=== PATIENT | male | born 1970 | race Caucasian/White ===

== ENCOUNTER 2017-01-08 12:07 | Inpatient (IN) | payer MEDICAID ==
--- NOTE | 2017-01-06 22:35 | NUR ---
MS/RN NOTES DID NOT ADMINISTER TO PT. 2000 VANCOMYCIN ORDERED BECAUSE PT. RECEIVED VANCOMYCIN IN ER AT 1705. WILL CONTINUE TO MONITOR.
[~2017-01-08] VITALS: Ht 170.2 cm; Wt 117.9 kg
--- NOTE | 2017-01-08 14:12 | NUR ---
LORRAINE INDIVIDUAL PENSION CONSULTANT AT BEDSIDE FOR EVAL.
--- NOTE | 2017-01-08 15:19 | NUR ---
RADIOLOGY AT BEDSIDE FOR CHEST XRAY.
[2017-01-08] MEDS ORDERED: PIPERACILLIN /TAZOBACTAM 3.375 G in IV D5W 50 ML IV ONE (15:30)
[2017-01-08] MEDS ORDERED: VANCOMYCIN 1 GM in IV D5W 250 ML IV ONE (15:30)
[2017-01-08 15:31] LABS: BASOPHILS # (AUTO) 0.1 /CMM (0.0-0.2); BASOPHILS % (AUTO) 0.6 % (0.0-2.0); EOSINOPHILS # (AUTO) 0.2 /CMM (0.0-0.7); EOSINOPHILS % (AUTO) 1.5 % (0.0-6.0); HEMATOCRIT 50 % (39-51); HEMOGLOBIN 16.6 g/dL (13.5-17.5); LYMPHOCYTES # (AUTO) 3.5 /CMM (0.8-4.8); LYMPHOCYTES % (AUTO) 25.4 % (20.0-44.0); MEAN CORPUSCULAR HEMOGLOBIN 29 PG (26.0-33.0); MEAN CORPUSCULAR HGB CONC 33 g/dl (31.0-36.0); MEAN CORPUSCULAR VOLUME 88 fL (80-96); MONOCYTES # (AUTO) 0.7 /CMM (0.1-1.30); MONOCYTES % (AUTO) 5.1 % (2.0-12.0); NEUTROPHILS # (AUTO) 9.3 /CMM (1.8-8.9); NEUTROPHILS % (AUTO) 67.4 % (43.0-81.0); PLATELET COUNT (AUTO) 379 /CMM (150-450); RDW COEFFICIENT OF VARIATION 12.8 (11.5-15.0); RED BLOOD CELL COUNT(AUTO) 5.68 MIL/uL (4.5-6.0); WHITE BLOOD COUNT (AUTO) 13.8 K/uL (4.3-11.0)
[2017-01-08 15:40] LABS: CALCIUM, SERUM 9.5 mg/dL (8.5-10.1); CREATININE 1.5 mg/dL (0.6-1.3); POTASSIUM 4.4 mmol/L (3.5-5.1)
[2017-01-08] MEDS ORDERED: IV SET PRIMARY PUMP SET 1 EA INFUS.SET MC ONE ×2 (15:47→20:17)
[2017-01-08] MEDS ORDERED: ONDANSETRON HCL/PF 4 MG/2 ML VIAL ONE (15:47)
[2017-01-08] MEDS ORDERED: HYDROMORPHONE 1 MG/1 ML DISP.SYRIN ONE (15:47)
[2017-01-08] MEDS ORDERED: GABA-532 PO (15:49)
[2017-01-08] MEDS ORDERED: INSU100I14 SQ (15:49)
[2017-01-08] MEDS ORDERED: ATOR40TA PO (15:49)
[2017-01-08] MEDS ORDERED: ASPI81TA2 PO (15:49)
[2017-01-08] MEDS ORDERED: METO25TA6 PO (15:49)
[2017-01-08] MEDS ORDERED: DICL30AD3 PO (15:49)
[2017-01-08] MEDS ORDERED: INSU3INS6 SQ (15:49)
[2017-01-08] MEDS ORDERED: OXYC-34 PO (15:49)
[2017-01-08] MEDS ORDERED: BENA1TAB18 PO (15:49)
--- NOTE | 2017-01-08 15:49 | NUR ---
CALLED PHARMACY FOR ZELALEM
[2017-01-08 15:50] LABS: INR 0.95 (0.87-1.13)
[2017-01-08] MEDS ORDERED: ONDANSETRON HCL/PF - ER 4 MG/2 ML VIAL IV ONE (16:00)
[2017-01-08] MEDS ORDERED: HYDROMORPHONE 1 MG/1 ML DISP.SYRIN IV ONE (16:00)
--- NOTE | 2017-01-08 16:03 | NUR ---
PAGED DR. SWANSON FOR PANEL CALL
--- NOTE | 2017-01-08 17:20 | NUR ---
UNABLE TO GIVE REPORT, FLOOR NOT PICKING UP. PT TRANSFERED IN STABLE CONDITION PER ER CHARGE NURSE.
--- NOTE | 2017-01-08 17:59 | NUR ---
MS/sueding machine operator New patient from emergency room with left lower leg wound. Patient still to be admitted to floor. Dr De La Cruz paged for orders.
--- NOTE | 2017-01-08 18:20 | NUR ---
MS RN NOTES PT AWAKE ALERT AND VERBALLY RESPONSIVE. NOT IN ANY DISTRESS. NO SOB NOTED. PAGED DR. SWANSON FOR PAIN MANAGEMENT ORDERS PT STATES HAS 10/10 PAIN LEVEL WILL CONTINUE TO MONITOR AND FOLLOW UP. ORIENTED TO ROOM AND USE OF CALL LIGHT WITHIN REACH. BED IN LOWEST POSITION. SR UP X 2 DR SWANSON AWARE OF PTS ARRIVAL AND NEED FOR ADMISSION ORDERS WILL CONTINUE TO FOLLOW UP. T 97.5 R 18 P 70 BP 135/86 WILL ENDORSE TO NEXT SHIFT FOR CONTINUITY OF CARE
[2017-01-08] MEDS ORDERED: FEE PK DOSING 1 MIN EA MC ONE (18:54)
[2017-01-08] MEDS ORDERED: KETOROLAC TROMETHAMINE INJ 30 MG/ML VIAL IV PRN (19:00)
[2017-01-08] MEDS ORDERED: TRAMADOL HCL 50 MG TABLET PO PRN (19:00)
[2017-01-08] MEDS ORDERED: CEFTRIAXONE 1 G in IV D5W 50 ML IV SCH (19:00)
--- NOTE | 2017-01-08 19:00 | NUR ---
RN NOTES CALLED PHARMACY AND DR. SWANSON FOR VERIFICATION OF PAIN MEDICATION REGIME, WILL CONTINUE TO MONITOR AND ENDORSE TO NEXT SHIFT MEDICATION BECOMES AVAILABLE
--- NOTE | 2017-01-08 19:35 | NUR ---
MS/RN NOTES RECEIVED PT. LYING IN BED. AWAKE, ALERT AND ORIENTED X3. BREATHING EVEN AND UNLABORED ON ROOM AIR. NO SOB OR RESPIRATORY DISTRESS NOTED AT THIS TIME. PT. COMPLAINING OF PAIN 8/10 IN LEFT LOWER LEG. WILL VERIFY PT. PAIN MEDICATION AND ADMINISTER PAIN MEDICATION ORDERED. PT. WITH RIGHT AC 20 GAUGE IV SALINE LOCK PRESENT, PATENT AND INTACT. PT. WITH LEFT LOWER LEG WOUND WITH DRESSING PRESENT, CLEAN, DRY AND INTACT. PT. LEFT LOWER EXTREMITY IS ELEVATED ON PILLOWS. BED IN LOWEST POSITION, CALL LIGHT WITHIN REACH, WILL CONTINUE TO MONITOR.
[2017-01-08 20:00] VITALS: BP 167/99
[2017-01-08] MEDS: VANCOMYCIN 1 GM in IV D5W 250 ML IV SCH ×2 (20:00→22:53)
[2017-01-08] MEDS ORDERED: IV NS 0.9% 250 ML IV ONE (20:16)
[2017-01-08] MEDS ORDERED: SECONDARY IV SET 1 EA INFUS.SET MC ONE ×2 (20:17→22:04)
[2017-01-08] MEDS ORDERED: ACETAMINOPHEN 325 MG TABLET PO PRN (21:00)
[2017-01-08] MEDS ORDERED: HYDROMORPHONE HCL 2 MG TABLET PO PRN (21:00)
[2017-01-08] MEDS: ENOXAPARIN SODIUM 40 MG/0.4 ML DISP.SYRIN SQ SCH (21:00)
[2017-01-08] MEDS ORDERED: Z GUARD REMEDY 2 OZ OINT TP PRN (21:00)
[2017-01-08] MEDS ORDERED: MAG HYDROX/AL HYDROX/SIMETH 30 ML UDC PO PRN (21:00)
[2017-01-08] MEDS ORDERED: DEXTROSE 50%-WATER 50 ML DISP.SYRIN IV PRN (21:00)
[2017-01-08] MEDS ORDERED: MAGNESIUM HYDROXIDE 30 ML UDC PO PRN (21:00)
[2017-01-08] MEDS: CEFTRIAXONE 1 G in IV D5W 50 ML IV SCH (21:08)
[2017-01-08] MEDS ORDERED: ZOLPIDEM TARTRATE 5 MG TABLET PO PRN (22:00)
[2017-01-08] MEDS: oxyCODONE/APAP (5/325 MG) 1 UDTAB TABLET PO PRN (22:20)
[2017-01-08] MEDS: BLOOD SUGAR DIAGNOSTIC 1 EACH STRIP VI SCH (22:48)
[2017-01-08] MEDS: *INSULIN REGULAR(HUMULIN R)HUM 100 UNIT/ML VIAL SQ PRN (22:53)
--- NOTE | 2017-01-09 01:15 | NUR ---
MS/RN NOTES SPOKE TO RN MANUFACTURING PRODUCTION MANAGER PT. REQUESTING TO RETRIEVE SUPPLIES FROM HIS CAR FOR DRESSING CHANGE. HE STATES ITS THE ONLY THING THAT MAKES HIS ANKLE FEEL BETTER. PROVIDED PT. WITH OPTION OF CLEANING THE WOUND WITH NORMAL SALINE AND APPLYING GAUZE DRESSING. PT. REFUSED AND STATED HE WANTS TO USE HIS SUPPLIES AND DO HIS OWN DRESSING CHANGE. PER RN MANUFACTURING PRODUCTION MANAGER IT IS OK FOR HIM TO RETRIEVE HIS THINGS FROM HIS CAR ACCOMPANIED BY A POLYSOM TECH BUT WE WILL NOT PERFORM ANY OF THE DRESSING CHANGE. PT. RETRIEVED BELONGINGS FROM HIS CAR VIA WHEELCHAIR ACCOMPANIED BY POLYSOM TECH. PT. BROUGHT BACK TO HIS ROOM BAG OF SUPPLIES FOR DRESSING CHANGE AND MEDICATIONS ARE VISUALIZED IN THE BAG. PT. REFUSING TO LET NURSE SEE WHAT IS PRESENT IN THE BAG. EDUCATED PT. THAT MEDICATIONS NEED TO BE SENT TO PHARMACY AND HE WILL GET THEM BACK UPON DISCHARGE. PT. VERBALIZED UNDERSTANDING BUT REFUSES TO LET ANY OF HIS POSSESSIONS LEAVE HIS BEDSIDE. WILL CONTINUE TO MONITOR.
--- NOTE | 2017-01-09 02:21 | NUR ---
MS/RN NOTES PT. STATING THAT HE FEELS OK AT THE MOMENT BUT HE KNOWS HE WILL BE IN PAIN IN A FEW HOURS AND HE IS NPO. PT. IS CONCERNED ABOUT BEING ABLE TO RECEIVE PO PAIN MEDICATION. PT. STATED HE IS ALSO WORRIED ABOUT HIS BLOOD SUGAR DROPPING BECAUSE HE IS NOT GOING TO BE EATING FOR A WHILE. EDUCATED PT. THAT TO VERBALIZE WHEN FEELING ANY S/S OF HYPO/HYPERGLYCEMIA AND THAT WE CAN RECHECK HIS BLOOD SUGAR AT HIS REQUEST. CONTACTED DR. FLORES AND INFORMED HIM ABOUT PT. CONCERNS PER MD IS PT. NEEDS ONE TIME MED WITH SIP OF WATER IT IS OK. NO NEED FOR IV FLUIDS UNLESS HIS BLOOD SUGAR DROPS. WILL ADMINISTER PAIN MEDICATION TO PT. WHEN REQUESTED ORDERED WITH SMALL SIP OF WATER. WILL CONTINUE TO MONITOR.
[2017-01-09] MEDS: oxyCODONE/APAP (5/325 MG) 1 UDTAB TABLET PO PRN ×3 (06:07→15:03)
[2017-01-09 07:21] LABS: CALCIUM, SERUM 9.1 mg/dL (8.5-10.1); CREATININE 1.4 mg/dL (0.6-1.3); MAGNESIUM 1.7 mg/dL (1.8-2.4); POTASSIUM 4.5 mmol/L (3.5-5.1)
[2017-01-09 07:23] LABS: BASOPHILS # (AUTO) 0.1 /CMM (0.0-0.2); BASOPHILS % (AUTO) 0.6 % (0.0-2.0); EOSINOPHILS # (AUTO) 0.3 /CMM (0.0-0.7); HEMATOCRIT 47 % (39-51); HEMOGLOBIN 15.4 g/dL (13.5-17.5); LYMPHOCYTES # (AUTO) 3.4 /CMM (0.8-4.8); LYMPHOCYTES % (AUTO) 28.8 % (20.0-44.0); MEAN CORPUSCULAR HEMOGLOBIN 29 PG (26.0-33.0); MEAN CORPUSCULAR HGB CONC 33 g/dl (31.0-36.0); MEAN CORPUSCULAR VOLUME 87 fL (80-96); MONOCYTES # (AUTO) 0.9 /CMM (0.1-1.30); MONOCYTES % (AUTO) 7.3 % (2.0-12.0); NEUTROPHILS # (AUTO) 7.1 /CMM (1.8-8.9); NEUTROPHILS % (AUTO) 60.3 % (43.0-81.0); PLATELET COUNT (AUTO) 350 /CMM (150-450); RDW COEFFICIENT OF VARIATION 13.5 (11.5-15.0); RED BLOOD CELL COUNT(AUTO) 5.34 MIL/uL (4.5-6.0); WHITE BLOOD COUNT (AUTO) 11.7 K/uL (4.3-11.0)
--- NOTE | 2017-01-09 07:30 | NUR ---
MS/RN AM NOTES PT IN BED, AAO X 3, ON ROOM AIR. NO SOB OR RESPIRATORY DISTRESS NOTED AT THIS TIME. PT. COMPLAINING OF PAIN 6/10 IN LEFT LOWER LEG. RECEIVED PAIN MEDICATION EARLIER. PT. WITH RIGHT AC 20 GAUGE IV SALINE LOCK PRESENT, FLUSHES WELL, SITE CLEAR, PT. WITH LEFT LOWER LEG WOUND WITH DRESSING IN PLACE, CLEAN, DRY AND INTACT. PT. LEFT LOWER EXTREMITY IS ELEVATED ON PILLOWS. NPO FOR SURGICAL PROCEDURE TODAY - LEFT ANKLE WOUND ULCER DEBRIDEMENT AND POSSIBLE WOUND VAC PLACEMENT. BED IN LOWEST POSITION, CALL LIGHT WITHIN REACH, WILL CONTINUE TO MONITOR.
--- NOTE | 2017-01-09 07:35 | NUR ---
MS/RN NOTES PT. SITTING UP IN BED. AWAKE, ALERT AND ORIENTED X3. BREATHING EVEN AND UNLABORED ON ROOM AIR. NO SOB OR RESPIRATORY DISTRESS OR COMPLAINTS OF PAIN AT THIS TIME. PT. WITH RIGHT AC 20 GAUGE IV SALINE LOCK PRESENT, PATENT AND INTACT ADMINISTERING TO PT. 0800 VANCOMYCIN ORDERED. PT. TOLERATING WELL. PT. PERFORMED OWN DRESSING CHANGE WITH PERSONAL SUPPLIES AND MEDICATIONS. DRESSING IS CLEAN, DRY AND INTACT. PT. REMAINS WITH BAG OF MEDICATIONS PRESENT AT BEDSIDE. PT. CONTINUES TO REFUSE TO LET NURSE LOOK THROUGH POSSESSIONS AND REFUSES TO SEND MEDICATIONS TO PHARMACY. EDUCATED PT. ON IMPORTANCE OF MEDICATIONS TO GO THROUGH PHARMACY AND TO NOT SELF MEDICATE BECAUSE PT. MAY RECEIVE MORE MEDICATION THAN ORDERED. PT. VERBALIZED UNDERSTANDING AND STATED HE WILL NOT TAKE ANY OF THE MEDICATION BUT HE DOES NOT WANT IT TO LEAVE HIS VIEW. WILL ENDORSE TO DAYSILFT NURSE. PT. REMAINS NPO SINCE MIDNIGHT. PT. IS ON SURGERY SCHEDULE BUT NO ORDER FOR PROCEDURE YET. WILL ENDORSE TO DAYSILFT NURSE TO OBTAIN CONSENT FOR PROCEDURE. PT. LEFT LOWER EXTREMITY IS ELEVATED ON PILLOWS. ALL PT. NEEDS MET. BED IN LOWEST POSITION, CALL LIGHT WITHIN REACH, WILL ENDORSE TO DAYSILFT NURSE FOR CONTINUITY OF CARE.
[2017-01-09] MEDS: BLOOD SUGAR DIAGNOSTIC 1 EACH STRIP VI SCH ×4 (07:45→22:33)
[2017-01-09] MEDS: VANCOMYCIN 1 GM in IV D5W 250 ML IV SCH ×2 (07:46→20:18)
[2017-01-09 08:00] VITALS: BP 153/94
[2017-01-09 08:21] VITALS: BP 156/101
[2017-01-09] MEDS: GABAPENTIN 100 MG CAPSULE PO SCH ×3 (08:56→17:25)
[2017-01-09] MEDS: ATORVASTATIN 40 MG TABLET PO SCH (08:56)
[2017-01-09] MEDS: PANTOPRAZOLE 40 MG TABLET.DR PO SCH (08:56)
[2017-01-09] MEDS: METOPROLOL TARTRATE 25 MG TABLET PO SCH ×2 (08:56→17:25)
[2017-01-09] MEDS: INSULIN DETEMIR 100 UNIT/ML CARTRIDGE SQ SCH ×2 (08:57→17:00)
--- NOTE | 2017-01-09 09:30 | NUR ---
MS RN NOTES PER FARHANA ALCARAZ TO GIVE BP MEDS WITH SIP OF WATER.
[2017-01-09] MEDS ORDERED: ANESTHESIA TRAY IN PYXIS 1 EA TRAY MC ONE ×2 (10:34→10:35)
[2017-01-09] MEDS ORDERED: MAGNESIUM OXIDE 400 MG TABLET PO ONE (11:30)
--- NOTE | 2017-01-09 11:37 | NUR ---
MS RN NOTES ACCUCHECK. BS 110 MG/DL. NO INSULIN COVERAGE GIVEN. PATIENT PICKED UP FOR SURGERY.
[2017-01-09] MEDS ORDERED: LIDOCAINE HCL/PF 1% 30 ML SDV ONE ×2 (12:03→12:46)
[2017-01-09] MEDS ORDERED: BUPIVACAINE MPF 0.5% W/EPI INJ 30 ML VIAL ONE (12:03)
[2017-01-09] MEDS ORDERED: BACITRACIN 50000 UNITS/VIAL ONE (12:04)
--- NOTE | 2017-01-09 13:32 | NUR ---
RN NOTES PATIENT BACK FROM SURGERY, S/P LEFT ANKLE DEBRIDEMENT WITH WOUND VAC IN PLACE CONTINUOUS AT [address] EDWARDS TODAY. AAO X 3, NOT IN ANY DISTRESS. NO C/O PAIN. POST OP ORDERS CARRIED OUT. VSS.
[2017-01-09] MEDS: ONDANSETRON HCL/PF 4 MG/2 ML VIAL IVP PRN (14:25)
[2017-01-09] MEDS ORDERED: MORPHINE SULFATE INJ 2 MG/ML DISP.SYRIN IV PRN ×2 (14:30→17:30)
[2017-01-09] MEDS ORDERED: KETOROLAC TROMETHAMINE INJ 30 MG/ML VIAL IM PRN (15:00)
[2017-01-09 16:00] VITALS: BP 129/69
--- NOTE | 2017-01-09 17:25 | NUR ---
MS RN NOTES ACCUCHECK. BS 147 MG/DL. 2 UNITS HUM R GIVEN PER SS. PT REFUSED LEVEMIR.
[2017-01-09] MEDS: INSULIN REGULAR, HUMAN 100 UNIT/ML 3 ML VIAL SQ PRN (17:52)
--- NOTE | 2017-01-09 18:10 | NUR ---
RN NOTES PER DR. NICOLÁS DELCID TO GIVE TORADOL AND BENADRYL. MD ALSO AWARE PATIENT JUST RECEIVED 4 MG MORPHINE IV AT 1721.
[2017-01-09] MEDS: diphenhydrAMINE HCL 50 MG/ML VIAL IV PRN (18:33)
[2017-01-09 19:00] VITALS: BP 140/83
--- NOTE | 2017-01-09 19:15 | NUR ---
MS/RN CLOSING NOTES PT IN BED, RESTING COMFORTABLY, S/P LEFT ANKLE DEBRIDEMENT WITH WOUND VAC IN PLACE. ON ROOM AIR. NO SOB OR RESPIRATORY DISTRESS NOTED AT THIS TIME. WITH RIGHT AC 20 GAUGE IV SALINE LOCK PRESENT, FLUSHES WELL, SITE CLEAR, PT. LEFT LOWER EXTREMITY IS ELEVATED ON PILLOWS. BED IN LOWEST POSITION, CALL LIGHT WITHIN REACH, ALL NEEDS MET. WILL ENDORSE TO NEXT SHIFT FOR EMANUEL. PT SEEN BY DR. MONZON A WHILE AGO DUE TO PAIN MANAGEMENT NOT EFFECTIVE ON HIM. STARTED PATIENT ON DILAUDID 2 MG IV.
[2017-01-09 20:00] VITALS: BP 140/83
[2017-01-09] MEDS: HYDROMORPHONE INJ 2 MG/ML DISP.SYRIN IV PRN (20:09)
[2017-01-09] MEDS: CEFTRIAXONE 1 G in IV D5W 50 ML IV SCH (20:18)
[2017-01-09] MEDS: ENOXAPARIN SODIUM 40 MG/0.4 ML DISP.SYRIN SQ SCH (21:00)
[2017-01-09] MEDS ORDERED: IBUPROFEN 400 MG TABLET PO SCH (21:30)
[2017-01-09] MEDS ORDERED: IBUPROFEN 400 MG TABLET ONE (21:35)
[2017-01-09] MEDS ORDERED: LIDOCAINE 5% (PATCH) 1 EA PATCH TP ONE (23:04)
[2017-01-09] MEDS: LIDOCAINE 5% (PATCH) 1 EA PATCH TP SCH (23:22)
[2017-01-10] MEDS: HYDROMORPHONE INJ 2 MG/ML DISP.SYRIN IV PRN ×7 (02:41→23:23)
[2017-01-10] MEDS: INSULIN REGULAR, HUMAN 100 UNIT/ML 3 ML VIAL SQ PRN ×3 (06:59→17:27)
--- NOTE | 2017-01-10 07:00 | NUR ---
MS RN NOTES AWAKE & RESPONSIVE. NOT IN ANY DISTRESS. NO SOB NOTED. DENIES ANY PAIN OR DISCOMFORT AT THIS TIME. WITH IV-HL PATENT & INTACT. WITH WOUND VAC DRESSING C/D/I. NO OUTPUT. CALL LIGHT WITHIN REACH. BED IN LOWEST POSITION. SR UP X 2 FOR SAFETY. WILL ENDORSE TO NEXT SHIFT.
--- NOTE | 2017-01-10 07:10 | NUR ---
MS RN INITIAL NOTES REPORT RECEIVED AT THE BEDSIDE. PATIENT IS RESTING COMFORTABLY IN BED. NO SOB OR DISTRESS NOTED AT THIS TIME. PATIENT REPORTS TOLERABLE PAIN AT THIS TIME. BED IN A LOW POSITION, CALL LIGHT WITHIN REACH. WILL CONTINUE TO MONITOR.
[2017-01-10] MEDS: BLOOD SUGAR DIAGNOSTIC 1 EACH STRIP VI SCH ×4 (07:34→21:06)
[2017-01-10 07:50] LABS: CALCIUM, SERUM 8.5 mg/dL (8.5-10.1); CREATININE 1.6 mg/dL (0.6-1.3); POTASSIUM 4.5 mmol/L (3.5-5.1)
[2017-01-10 08:00] VITALS: BP 157/109
[2017-01-10] MEDS: METOPROLOL TARTRATE 25 MG TABLET PO SCH ×2 (08:37→16:44)
[2017-01-10] MEDS: GABAPENTIN 100 MG CAPSULE PO SCH ×3 (08:37→16:44)
[2017-01-10] MEDS: VANCOMYCIN 1 GM in IV D5W 250 ML IV SCH ×2 (08:37→21:54)
[2017-01-10] MEDS: PANTOPRAZOLE 40 MG TABLET.DR PO SCH (08:37)
[2017-01-10] MEDS: ATORVASTATIN 40 MG TABLET PO SCH (08:38)
[2017-01-10] MEDS: INSULIN DETEMIR 100 UNIT/ML CARTRIDGE SQ SCH ×2 (08:40→17:26)
--- NOTE | 2017-01-10 10:56 | NUR ---
MS RN NOTES RECEIVED A CALL FROM DR MONZON. INFORMED MD THAT PATIENT IS HAVING PAIN BREAKTHROUGHS BEFORE THE Q4 HOUR HARVINDER FOR THE DILAUDID AND STATES THE TORADOL IS NOT EFFECTIVE FOR REDUCING HIS PAIN. MD STATES TO CHANGE THE DILAUDID TO Q3H. WILL PLACE ORDERS.
[2017-01-10 16:00] VITALS: BP 143/76
[2017-01-10] MEDS: diphenhydrAMINE HCL 50 MG/ML VIAL IV PRN (16:02)
[2017-01-10] MEDS: HYDROCODONE/APAP 5/325MG 1 EACH TABLET PO PRN (18:39)
[2017-01-10 19:00] VITALS: BP 148/98
--- NOTE | 2017-01-10 19:17 | NUR ---
MS RN CLOSING NOTES NO SIGNIFICANT CHANGES IN PATIENT CONDITION THROUGHOUT THE SHIFT. NO SOB OR DISTRESS AT THIS TIME. PATIENT REPORTS PAIN, BUT STATES HE CAN WAIT FOR THE NEXT PAIN MED AT 1999. WOUND VAC IN PLACE AND DRAINING. NO OUTPUT ON THIS SHIFT.BED IN A LOW POSITION, CALL LIGHT WITHIN PATIENT REACH. WILL ENDORSE FOR EMANUEL.
--- NOTE | 2017-01-10 19:40 | NUR ---
MS RN NOTE: PATIENT RESTING IN BED, NO ACUTE DISTRESS NOTED. BREATHING EVEN AND UNLABORED, NO SOB NOTE. DRESSING TO LEFT LEG CLEAN AND IN PLACE. WOUND VAC IN PLACE WITH CONTINUOUS SUCTION AT 125MM/HG. HL TO RAC IN PLACE. NO S/S OF HYPER/HYPOGLYCEMIA NOTED. BED LOCKED AND IN LOWEST POSITION, CALL LIGHT IN REACH. WILL CONTINUE TO MONITOR.
[2017-01-10] MEDS: CEFTRIAXONE 1 G in IV D5W 50 ML IV SCH (20:12)
--- NOTE | 2017-01-10 20:15 | NUR ---
MS RN NOTE: PATIENT COMPLAINS OF PAIN TO LEFT LEG/ANKLE 07/07, DILAUDID 2MG IV GIVEN PER MD ORDER. WILL CONTINUE TO MONITOR.
[2017-01-10] MEDS: ENOXAPARIN SODIUM 40 MG/0.4 ML DISP.SYRIN SQ SCH (21:00)
[2017-01-10] MEDS: LIDOCAINE 5% (PATCH) 1 EA PATCH TP SCH (21:10)
--- NOTE | 2017-01-10 21:15 | NUR ---
MS RN NOTE: PATIENT BLOOD SUGAR LEVEL 108 MG/DL, NO INSULIN NEEDED PER SLIDING SCALE. PATIENT DENIES S/S OF HYPO/HYPERGLYCEMIA AT THIS TIME. SNACKS PROVIDED. WILL CONTINUE TO MONITOR.
--- NOTE | 2017-01-10 21:45 | NUR ---
MS RN NOTE: PATIENT REFUSED LOVENOX, EXPLAINS RISK AND BENEFITS, PATIENT STILL REFUSED. PATIENT IV TO RAC LEAKING. NEW IV STARTED TO RFA # 20 WITH GOOD BLOOD RETURN. OLD IV SITE REMOVED, COVERED WITH GAUZE, PRESSURE APPLIED, AND SECURED WITH TAPE. WILL CONTINUE TO MONITOR.
[2017-01-10] MEDS: oxyCODONE/APAP (5/325 MG) 1 UDTAB TABLET PO PRN (21:54)
--- NOTE | 2017-01-10 22:00 | NUR ---
MS RN NOTE: PATIENT COMPLAINS OF PAIN TO LEFT LEG/ANKLE 8/10, PERCOCET 2 TABS ORAL GIVEN PER MD ORDER. WILL CONTINUE TO MONITOR.
--- NOTE | 2017-01-10 23:30 | NUR ---
MS RN NOTE: PATIENT COMPLAINS OF PAIN TO LEFT LEG/ANKLE 07/07, DILAUDID 2MG IV GIVEN PER MD ORDER. WILL CONTINUE TO MONITOR.
[2017-01-11] MEDS: HYDROCODONE/APAP 5/325MG 1 EACH TABLET PO PRN ×3 (01:51→19:36)
--- NOTE | 2017-01-11 01:54 | NUR ---
NORCO GIVEN FOR C/O L FOOT PAIN 05/06. WILL CONT TO MONITOR
[2017-01-11] MEDS: HYDROMORPHONE INJ 2 MG/ML DISP.SYRIN IV PRN ×7 (02:55→20:55)
[2017-01-11] MEDS: BLOOD SUGAR DIAGNOSTIC 1 EACH STRIP VI SCH ×4 (06:39→22:16)
--- NOTE | 2017-01-11 06:40 | NUR ---
MS RN NOTE: PATIENT RESTING IN BED, NO ACUTE DISTRESS NOTED. BREATHING EVEN AND UNLABORED, NO SOB NOTE. DRESSING TO LEFT LEG CLEAN AND IN PLACE. WOUND VAC IN PLACE WITH CONTINUOUS SUCTION AT 125MM/HG. HL TO RFA IN PLACE. PATIENT BLOOD SUGAR 134 MG/DL, TO RECEIVE 2 UNITS OF INSULIN PER SLIDING SCALE. NO S/S OF HYPER/HYPOGLYCEMIA NOTED. PATIENT COMPLAINS OF PAIN TO LEFT FOOT/ANKLE 10/10, DILAUDID 2MG IV GIVEN PER MD ORDER. BED LOCKED AND IN LOWEST POSITION, CALL LIGHT IN REACH. WILL ENDORSE TO DARRYL NURSE TO CONTINUE WITH PLAN OF CARE.
[2017-01-11] MEDS: INSULIN REGULAR, HUMAN 100 UNIT/ML 3 ML VIAL SQ PRN ×3 (06:59→18:06)
[2017-01-11 07:33] LABS: CALCIUM, SERUM 8.5 mg/dL (8.5-10.1); CREATININE 1.3 mg/dL (0.6-1.3); POTASSIUM 4.4 mmol/L (3.5-5.1)
--- NOTE | 2017-01-11 07:58 | NUR ---
WOUND CARE CONSULT: PT PRESENTS WITH [employer] VAC TO LEFT LEG AT 125mmHg CONTINUOUS SETTING. SMALL AMOUNT OF SEROSANGUINOUS DRAINAGE IN CANISTER. WILL SEE PRN.
[2017-01-11 08:00] VITALS: BP_SYST 127; BP_SYST 147; BP_DIAS 67; BP_DIAS 86
[2017-01-11] MEDS: oxyCODONE/APAP (5/325 MG) 1 UDTAB TABLET PO PRN ×3 (08:22→22:22)
[2017-01-11] MEDS: HYDROCHLOROTHIAZIDE 25 MG TABLET PO SCH (08:23)
[2017-01-11] MEDS: ATORVASTATIN 40 MG TABLET PO SCH (08:23)
[2017-01-11] MEDS: METOPROLOL TARTRATE 25 MG TABLET PO SCH ×2 (08:23→17:09)
[2017-01-11] MEDS: ASPIRIN 81 MG TAB.CHEW PO SCH (08:23)
[2017-01-11] MEDS: GABAPENTIN 100 MG CAPSULE PO SCH ×3 (08:23→17:09)
[2017-01-11] MEDS: PANTOPRAZOLE 40 MG TABLET.DR PO SCH (08:23)
[2017-01-11] MEDS: VANCOMYCIN 1 GM in IV D5W 250 ML IV SCH ×2 (08:33→20:42)
[2017-01-11] MEDS: INSULIN DETEMIR 100 UNIT/ML CARTRIDGE SQ SCH ×2 (08:41→18:17)
[2017-01-11 16:00] VITALS: BP 149/88
[2017-01-11] MEDS: LACTOBACILLUS RHAMNOSUS GG 1 EACH CAP.SPRINK PO SCH (17:09)
--- NOTE | 2017-01-11 19:15 | NUR ---
MS RN NOTES RECEIVED ON BED A/O X4,BREATHING REGULAR,NOT IN ANY FORM OF DISTRESS.LEFT FOOT DRESSING INTACT AND DRY ATTACHED TO WOUND VAC AT 125MM, ELEVATED ON THREE PILLOWS,WITH SCANTY OUTPUT.SALINE LOCK INTACT AND PATENT.CALL LIGHT IN REACH,NEEDS ANTICIPATED.
--- NOTE | 2017-01-11 19:36 | NUR ---
MS RN NOTES PAIN MANAGEMENT C/O LEFT FOOT PAIN 7/10 ON PAIN SCALE, MEDICATED WITH NORCO 5/325 1TAB PO ORDERED.
[2017-01-11] MEDS: CEFTRIAXONE 1 G in IV D5W 50 ML IV SCH (19:46)
[2017-01-11 20:00] VITALS: BP_SYST 160; BP_SYST 170; BP_DIAS 83; BP_DIAS 98
--- NOTE | 2017-01-11 20:00 | NUR ---
MS RN NOTE DUE ROCEPHIN IVPB HUNG
[2017-01-11] MEDS: LIDOCAINE 5% (PATCH) 1 EA PATCH TP SCH (20:42)
--- NOTE | 2017-01-11 20:45 | NUR ---
MS RN NOTES DUE LIDODERM PATCH APPLIED TO LEFT LOWER FOR PAIN MANAGEMENT ORDERED
[2017-01-11] MEDS: ENOXAPARIN SODIUM 40 MG/0.4 ML DISP.SYRIN SQ SCH (20:49)
--- NOTE | 2017-01-11 20:55 | NUR ---
MS RN NOTES PAIN MANAGEMENT STILL IN PAIN POST AMBULATION TO THE TOILET,MEDICATED WITH DILAUDID 2MG IVP ORDERED FOR SEVERE PAIN
--- NOTE | 2017-01-11 21:00 | NUR ---
MS RN NOTES DUE VANCOMYCIN 1GM IVPB HUNG
[2017-01-11] MEDS: *INSULIN REGULAR(HUMULIN R)HUM 100 UNIT/ML VIAL SQ PRN (21:28)
--- NOTE | 2017-01-11 21:30 | NUR ---
MS RN NOTES ACCU-CHECK BLOOD SUGAR CHECK 193,COVERED WITH HUMULIN R 3 UNITS PER MODERATE SLIDING SCALE.SNACKS PROVIDED AT BEDSIDE.
[2017-01-11 21:38] VITALS: BP 160/83
--- NOTE | 2017-01-11 22:22 | NUR ---
MS RN NOTES PAIN MANAGEMENT STILL IN PAIN 8/10 ON PAIN SCALE,MEDICATED WITH PERCOCET 2 TABS PO FOR SEVERE PAIN
--- NOTE | 2017-01-12 01:00 | NUR ---
MS RN NOTES SOUND ASLEEP,KEPT WARM AND COMFORTABLE.
[2017-01-12] MEDS: HYDROMORPHONE INJ 2 MG/ML DISP.SYRIN IV PRN ×7 (03:35→21:02)
[2017-01-12] MEDS: PANTOPRAZOLE 40 MG TABLET.DR PO SCH ×2 (06:32→08:54)
[2017-01-12] MEDS: BLOOD SUGAR DIAGNOSTIC 1 EACH STRIP VI SCH ×4 (06:33→21:17)
[2017-01-12 06:56] LABS: CALCIUM, SERUM 8.8 mg/dL (8.5-10.1); CREATININE 1.2 mg/dL (0.6-1.3); POTASSIUM 4.7 mmol/L (3.5-5.1)
--- NOTE | 2017-01-12 07:01 | NUR ---
MS RN NOTE PATIENT STABLE. NO DISTRESS NOTED. DRESSING INTACT WITH NO DRAINAGE NOTED. PATIENT REPORTED HAVING 9/10 PAIN TO LEFT LEG. 2MG DILAUDID IVP ADMINISTERED SAFELY. BLOOD SUGAR 124. NO COVERAGE NEEDED. ALL NEEDS MET AND ATTENDED TO. WILL ENDORSE TO DAY SHIFT FOR EMANUEL.
[2017-01-12 08:00] VITALS: BP 166/103
--- NOTE | 2017-01-12 08:00 | NUR ---
MS RN NOTES RECEIVED PATIENT AWAKE IN BED BREATHING EVEN AND NON LABORED. NOTED THAT PATIENT VOMITED X1. WITH HL RFA #22 INTACT AND PATENT. ZOFRAN PRN GIVEN IVP ORDERED. CALL LIGHT WITHIN REACH, BED IN LOW POSITION FOR SAFETY MEASURES, WILL CONTINUE TO MONITOR.
[2017-01-12] MEDS: VANCOMYCIN 1 GM in IV D5W 250 ML IV SCH ×2 (08:53→21:01)
[2017-01-12] MEDS: GABAPENTIN 100 MG CAPSULE PO SCH ×3 (08:54→17:41)
[2017-01-12] MEDS: ASPIRIN 81 MG TAB.CHEW PO SCH (08:54)
[2017-01-12] MEDS: LACTOBACILLUS RHAMNOSUS GG 1 EACH CAP.SPRINK PO SCH ×2 (08:54→17:41)
[2017-01-12] MEDS: ATORVASTATIN 40 MG TABLET PO SCH ×3 (08:54→21:16)
[2017-01-12] MEDS: ASCORBIC ACID 500 MG TABLET PO SCH (08:54)
[2017-01-12] MEDS: HYDROCHLOROTHIAZIDE 25 MG TABLET PO SCH (08:55)
[2017-01-12] MEDS: ONDANSETRON HCL/PF 4 MG/2 ML VIAL IVP PRN ×2 (08:55→14:56)
[2017-01-12] MEDS: METOPROLOL TARTRATE 25 MG TABLET PO SCH ×2 (08:55→17:41)
[2017-01-12] MEDS: INSULIN DETEMIR 100 UNIT/ML CARTRIDGE SQ SCH ×2 (09:00→17:00)
--- NOTE | 2017-01-12 09:30 | NUR ---
MS RN NOTES PIV RFA LEAKING. PT IS HARD STICK. LEILA RN SOON CAME TO REINSERT HIS PIV ON HIS RW #20, BUT PATIENT IS C/O PAIN. AND HE STATED THAT IT'S REALLY HURTING HIM. STARCH TREATING ASSISTANT ON DUTY NOTIFIED. PT FOR MIDLINE INSERTION.
[2017-01-12] MEDS: HYDROCODONE/APAP 5/325MG 1 EACH TABLET PO PRN ×3 (11:15→19:58)
[2017-01-12] MEDS: INSULIN REGULAR, HUMAN 100 UNIT/ML 3 ML VIAL SQ PRN ×2 (11:35→17:46)
[2017-01-12 16:00] VITALS: BP 164/100
--- NOTE | 2017-01-12 16:00 | NUR ---
MS RN NOTES MIDLINE INSERTED TICO #[address] MALDONADO, WITH GOOD BLOOD RETURN NOTED. PROCEDURE WELL TOLERATED.
--- NOTE | 2017-01-12 18:00 | NUR ---
MS RN NOTES NEEDS ALL ATTENDED AND ANTICIPATED, NO S/S OF ANY DISTRESS OR DISCOMFORT NOTED.
--- NOTE | 2017-01-12 18:30 | NUR ---
MS RN NOTES S/B DR. STONE WITH NEW ORDERS MADE AND CARRIED OUT.
[2017-01-12] MEDS: MUPIROCIN OINT 2% 22 GM TUBE TP SCH (19:30)
--- NOTE | 2017-01-12 19:30 | NUR ---
MS RN OPENING NOTES: PATIENT IN BED, AOX3, ON ROOM AIR, BREATHING EVEN AND UNLABORED. PATIENT APPEARS CALM, BUT STATES THAT HE HAS 9-10 /10 PAIN OVER HIS LEFT FOOT. LEFT FOOT NOTED TO HAVE CLEAN INTACT DRESSING SECURED WITH NIKITA BANDAGE, WITH WOUND VAC AT 125 MMHG. NOTED SEROSANGUINEOUS DRAINAGE IN COLLECTION CHAMBER. TICO MIDLINE ACCESS INTACT AND PATENT TO FLUSH. PROVIDED FOR COMFORT AND SAFETY. WILL CONT TO MONITOR.
[2017-01-12 20:00] VITALS: BP 155/97
[2017-01-12] MEDS ORDERED: SECONDARY IV SET 1 EA INFUS.SET MC ONE (20:01)
[2017-01-12] MEDS: CEFTRIAXONE 1 G in IV D5W 50 ML IV SCH (20:03)
--- NOTE | 2017-01-12 20:29 | NUR ---
RN NOTES: PER DR MONZON'S NOTES, BACTROBAN OINTMENT TO BE APPLIED OVER L ANKLE PRIOR TO DC, ONCE WOUND VAC IS D'LAINEY. NOT APPLIED OF THIS TIME. WOUND VAC STILL ON PATIENT.
[2017-01-12] MEDS ORDERED: IV NS 0.9% 250 ML IV ONE (20:47)
[2017-01-12] MEDS: ENOXAPARIN SODIUM 40 MG/0.4 ML DISP.SYRIN SQ SCH (21:00)
[2017-01-12] MEDS: LIDOCAINE 5% (PATCH) 1 EA PATCH TP SCH (21:02)
[2017-01-12] MEDS: *INSULIN REGULAR(HUMULIN R)HUM 100 UNIT/ML VIAL SQ PRN (21:22)
--- NOTE | 2017-01-12 22:00 | NUR ---
RN NOTES: BS CHECKED AT 139 MG/DL, ADMINISTERED 2 UNITS REGULAR INSULIN. OFFERED LIGHT SNACK. WILL CONT TO MONITOR.
[2017-01-13] VITALS (8 sets, daily range): BP systolic 146–177; BP diastolic 75–95
[2017-01-13] MEDS ORDERED: SECONDARY IV SET 1 EA INFUS.SET MC ONE (00:13)
[2017-01-13] MEDS: HYDROMORPHONE INJ 2 MG/ML DISP.SYRIN IV PRN ×6 (02:21→21:16)
--- NOTE | 2017-01-13 05:23 | NUR ---
RN NOTES: SPOKE TO DR FLORES, INFORMED HIM THAT PATIENT IS ALLERGIC TO MORPHINE (CAUSES N/V). PER Ricky AGUILA'Kell MORPHINE. NOTED AND CARRIED OUT.
[2017-01-13] MEDS: MUPIROCIN OINT 2% 22 GM TUBE TP SCH ×2 (06:30→18:30)
[2017-01-13] MEDS: BLOOD SUGAR DIAGNOSTIC 1 EACH STRIP VI SCH ×4 (06:35→21:16)
[2017-01-13] MEDS: INSULIN REGULAR, HUMAN 100 UNIT/ML 3 ML VIAL SQ PRN ×4 (06:41→21:58)
--- NOTE | 2017-01-13 06:46 | NUR ---
MS RN CLOSING NOTES: PATIENT IN BED, AOX3, ON ROOM AIR, BREATHING EVEN AND UNLABORED. TICO MIDLINE ACCESS INTACT AND PATENT TO FLUSH. BLOOD SUGAR CHECKED AT 139 MG /DL, ADMINISTERED 2 U REGULAR INSULIN. PROVIDED FOR COMFORT AND SAFETY. DUE MEDS GIVEN. PATIENT IS PENDING D/C TO HOME AFTER DISCONTINUING WOUND VAC PER DR MONZON. WILL ENDORSE TO AM RN FOR EMANUEL.
--- NOTE | 2017-01-13 07:25 | NUR ---
MS RN OPENING RECEIVED PT A/OX4 DENIES SOB, DIFFICULTY BREATHING. STATES HE HAS PAIN 5/10 AND IS BEARABLE AT THIS TIME AND WILL NOTIFY ME WHEN HE IS NEEDING PAIN MEDICATIONS. PT DRESSING INTACT WOUND VAC LESS THAN 25ML IN CANISTER. PATIENT STATES NO NEEDS AT THIS TIME AND APPEARS STABLE. WILL ROUND Q2H OR LESS PER NEEDS. CALL LIGHT IN REACH, BED LOWERED AND LOCKED, RAILS UPX3 FOR SAFETY
[2017-01-13 08:02] LABS: CALCIUM, SERUM 8.8 mg/dL (8.5-10.1); CREATININE 1.2 mg/dL (0.6-1.3); POTASSIUM 4.4 mmol/L (3.5-5.1)
--- NOTE | 2017-01-13 08:10 | NUR ---
MS RN NOTES PATIENT BP ELEVATED WILL GIVE AM MEDICATIONS RECHECK. PATIENT STATES NOW HIS PAIN IS A 8/10 IN LEG. PRN PERCOCET PER PATIENT REQUEST. PT STABLE
[2017-01-13] MEDS: GABAPENTIN 100 MG CAPSULE PO SCH ×3 (08:14→16:35)
[2017-01-13] MEDS: VANCOMYCIN 1 GM in IV D5W 250 ML IV SCH ×2 (08:14→20:14)
[2017-01-13] MEDS: HYDROCHLOROTHIAZIDE 25 MG TABLET PO SCH (08:14)
[2017-01-13] MEDS: ASCORBIC ACID 500 MG TABLET PO SCH (08:14)
[2017-01-13] MEDS: ASPIRIN 81 MG TAB.CHEW PO SCH (08:14)
[2017-01-13] MEDS: METOPROLOL TARTRATE 25 MG TABLET PO SCH ×2 (08:14→16:41)
[2017-01-13] MEDS: LACTOBACILLUS RHAMNOSUS GG 1 EACH CAP.SPRINK PO SCH ×2 (08:15→16:35)
[2017-01-13] MEDS: oxyCODONE/APAP (5/325 MG) 1 UDTAB TABLET PO PRN ×3 (08:26→20:14)
--- NOTE | 2017-01-13 08:30 | NUR ---
MS RN NOTES CALLED [facility] FOR CAM BOOT TO BE BROUGHT UP
[2017-01-13] MEDS: INSULIN DETEMIR 100 UNIT/ML CARTRIDGE SQ SCH ×2 (08:45→16:53)
[2017-01-13] MEDS ORDERED: GENTAMICIN 0.1% OINT 15 GM TUBE TP SCH (09:00)
--- NOTE | 2017-01-13 10:10 | NUR ---
MS RN NOTES NOTIFIED MD THAT PT BP TRENDS HIGH EVEN WITH CAMERON MEDICATIONS.
[2017-01-13] MEDS ORDERED: HYDROCHLOROTHIAZIDE 25 MG TABLET PO SCH (13:00)
[2017-01-13] MEDS: LISINOPRIL (20MG) 20 MG TABLET PO SCH (13:15)
[2017-01-13] MEDS ORDERED: HYDROCHLOROTHIAZIDE 25 MG TABLET PO ONE (13:30)
--- NOTE | 2017-01-13 19:11 | NUR ---
MS ANDERSON NOTES NOTIFIED WILDA PATIENT CONTINUES TO GET OUT OF BED WITHOUT ASSIST AND NEEDING SITTER FOR PATIENT SAFETY. OK ORDER SITTER Addendum: 01/13/17 at 1913 by [place] PENA RN INCORRECT PATIENT
[2017-01-13] MEDS: ONDANSETRON HCL/PF 4 MG/2 ML VIAL IVP PRN (19:22)
[2017-01-13] MEDS: CEFTRIAXONE 1 G in IV D5W 50 ML IV SCH (19:22)
--- NOTE | 2017-01-13 19:40 | NUR ---
MS RN OPENING NOTES: PATIENT IN BED, AOX4, ON ROOM AIR, BREATHING EVEN AND UNLABORED. TICO MIDLINE INTACT AND PATENT TO FLUSH. PATIENT HAS LLE DRESSING, CLEAN AND INTACT, SECURED WITH NIKITA BANDAGE, ATTACHED TO WOUND VAC AT 125 MMHG, NOTED LESS THAN 50 ML SEROSANGUINEOUS DRAINAGE IN COLLECTION CHAMBER. LEFT DISTAL TOES NORMAL IN COLOR. PATIENT COMPLAINS OF PAIN, AROUND 8-9 AT THIS TIME, OVER HIS LEFT FOOT. STATES THAT PREVIOUS DILAUDID WAS NOT ABLE TO RELIEVE THE PAIN THAT MUCH. PATIENT ALSO NAUSEOUS AT THIS TIME, HAD 1 EPISODE OF VOMITING. ONDANSETRON IV GIVEN. REASSURED PATIENT, AND EXPLAINED SCHEDULE FOR PAIN MEDICATIONS. KEPT LLE ELEVATED. WILL CONT TO MONITOR.
--- NOTE | 2017-01-13 20:20 | NUR ---
RN NOTES: PATIENT COMPLAINED OF 8/10 PAIN OVER LEFT FOOT, STATES THAT IT WAS NOT MUCH RELIEVED BY PREVIOUS DOSE OF DILAUDID. PERCOCET 5-325 MG 2 TABS PO GIVEN PRN. WILL CONT TO MONITOR.
[2017-01-13] MEDS: ENOXAPARIN SODIUM 40 MG/0.4 ML DISP.SYRIN SQ SCH (21:00)
[2017-01-13] MEDS: LIDOCAINE 5% (PATCH) 1 EA PATCH TP SCH (21:16)
[2017-01-13] MEDS: ATORVASTATIN 40 MG TABLET PO SCH (21:17)
--- NOTE | 2017-01-13 21:20 | NUR ---
RN NOTES: PATIENT STATES THAT NAUSEA HAS DECREASED NOW. HOWEVER, COMPLAINS OF PAIN OVER LLE AT 10/10, WITH THROBBING QUALITY. ADMINISTERED DILAUDID 2 MG IV. WILL CONT TO MONITOR.
[2017-01-14] MEDS: HYDROMORPHONE INJ 2 MG/ML DISP.SYRIN IV PRN ×6 (01:40→16:07)
--- NOTE | 2017-01-14 01:40 | NUR ---
RN NOTES: PATIENT CAME BACK FROM TOILET, COMPLAINING OF 10/10 THROBBING PAIN OVER LEFT FOOT. ADMINISTERED DILAUDID 2 MG IV. FEET ELEVATED ON PILLOWS. WILL CONT TO MONITOR.
--- NOTE | 2017-01-14 05:40 | NUR ---
RN NOTES: WASTED 1 DILAUDID 2 MG/1 ML SYRINGE. GLASS SYRINGE CRACKED/ BROKE WHILE TRYING TO ASPIRATE CONTENT. WASTED MEDICATION WITNESSED BY JUSTIN JOSEPH.
--- NOTE | 2017-01-14 06:20 | NUR ---
RN NOTES: BACTROBAN OINTMENT TO BE ADMINISTERED UPON DRESSING CHANGE WITH DR MONZON. STILL PENDING DRSG CHANGE.
--- NOTE | 2017-01-14 06:28 | NUR ---
MS RN CLOSING NOTES: PATIENT IN BED, AOX4, ON ROOM AIR, BREATHING EVEN AND UNLABORED. TICO MIDLINE INTACT AND PATENT TO FLUSH. BLOOD SUGAR CHECKED AT 127 MG/DL. NO INSULIN COVERAGE NEEDED AT THIS TIME. DUE MEDS GIVEN. PROVIDED FOR COMFORT AND SAFETY. LLE WOUND WITH CLEAN, INTACT DRESSING, WITH WOUND VAC AT 125 MMHG, PENDING TO BE D'LAINEY WITH DR MONZON'S FIRST DRESSING CHANGE. WILL ENDORSE TO AM RN FOR EMANUEL.
[2017-01-14] MEDS: MUPIROCIN OINT 2% 22 GM TUBE TP SCH (06:30)
[2017-01-14] MEDS: BLOOD SUGAR DIAGNOSTIC 1 EACH STRIP VI SCH ×2 (06:49→11:18)
[2017-01-14 08:00] VITALS: BP 158/98
[2017-01-14] MEDS: LACTOBACILLUS RHAMNOSUS GG 1 EACH CAP.SPRINK PO SCH (08:33)
[2017-01-14] MEDS: PANTOPRAZOLE 40 MG TABLET.DR PO SCH (08:33)
[2017-01-14] MEDS: ASCORBIC ACID 500 MG TABLET PO SCH (08:33)
[2017-01-14] MEDS: VANCOMYCIN 1 GM in IV D5W 250 ML IV SCH (08:33)
[2017-01-14] MEDS: ASPIRIN 81 MG TAB.CHEW PO SCH (08:33)
[2017-01-14] MEDS: GABAPENTIN 100 MG CAPSULE PO SCH ×2 (08:33→12:29)
[2017-01-14] MEDS: LISINOPRIL (20MG) 20 MG TABLET PO SCH (08:33)
[2017-01-14 08:34] VITALS: BP 158/98
[2017-01-14] MEDS: METOPROLOL TARTRATE 25 MG TABLET PO SCH (08:34)
[2017-01-14] MEDS: INSULIN DETEMIR 100 UNIT/ML CARTRIDGE SQ SCH (08:59)
[2017-01-14] MEDS ORDERED: HYDROCHLOROTHIAZIDE 25 MG TABLET PO SCH (09:00)
--- NOTE | 2017-01-14 09:00 | NUR ---
MS RN NOTES MESSAGE LEFT TO DR WAGNER TO CLARIFY WOUND CARE/REMOVAL OF WOUND VAC
[2017-01-14 09:04] LABS: CALCIUM, SERUM 8.8 mg/dL (8.5-10.1); CREATININE 1.2 mg/dL (0.6-1.3)
--- NOTE | 2017-01-14 10:05 | NUR ---
MS RN OPENING RECEIVED PT A/OX4 SLEEPING AWAKE TO NAME. PT STATES PAIN 7/10 IN LEFT LEG. PT DENIES SOB, DIFFICULTY BREATHING OR PAIN. PT STATES NO NEEDS AT THIS TIME AND APPEARS STABLE. WOUND VAC IN PLACE AND AT ORDERED SUCTION. NO OUTPUT FROM LAST SPA DIRECTOR/FINANCE. PT LEFT WITH CALL LIGHT IN REACH, BED LOWERED AND LOCKED, RAILS UPX3 FOR SAFETY WITH BED ALARM ON WILL ROUND Q2H OR LESS PER NEEDS
--- NOTE | 2017-01-14 10:21 | NUR ---
EXPANDER MACHINE OPERATOR DISCHARGE WOUND CARE TREATMENT DISCUSSED WITH DR MONZON AND ORDERS RECEIVED. ALL DISCUSSED WITH PROFESSOR OF CHEMICAL ENGINEERING. PATIENT FOR POSSIBLE DISCHARGE TODAY, PATIENT TO FOLLOW UP WITH DR MONZON IN THE CLINIC IN ONE WEEK. CALL FOR APPT [phone]. PATIENT WILL BE GIVEN RX FOR BACTROBAN FROM DR MONZON.
--- NOTE | 2017-01-14 10:25 | NUR ---
MS RN NOTES PER DR MONZON RN TO REMOVE WOUND VAC AND COMPLETE WOUND CARE. DC GENTAMICIN AND APPLY BACTROBAN WITH DRESSING CHANGE
[2017-01-14] MEDS ORDERED: MUPIROCIN OINT 2% 22 GM TUBE TP SCH (10:43)
--- NOTE | 2017-01-14 10:52 | NUR ---
MS RN NOTES NOTIFIED MD SWANSON OF UPDATE ON WOUND VAC REMOVAL
[2017-01-14] MEDS: oxyCODONE/APAP (5/325 MG) 1 UDTAB TABLET PO PRN (11:21)
--- NOTE | 2017-01-14 11:25 | NUR ---
ms rn notes snack provided for patient until lunch arrives
[2017-01-14] MEDS: *INSULIN REGULAR(HUMULIN R)HUM 100 UNIT/ML VIAL SQ PRN (11:29)
--- NOTE | 2017-01-14 12:20 | NUR ---
MS RN NOTES PT MEDICATED FOR DRESSING CHANGE. DID NOT ALLOW ME TO COMPLETE THE DRESSING CHANGE. HE COMPLETED HIM SELF. ASSISTED PATIENT AND DRESSING CHANGE COMPLETED NO COMPLICATIONS.
[2017-01-14] MEDS: HYDROCODONE/APAP 5/325MG 1 EACH TABLET PO PRN (13:44)
--- NOTE | 2017-01-14 15:06 | NUR ---
MS RN NOTES TALKED TO CHELSEA HAYES AND NOTIFIED PER PHYSICAL THERAPY PATIENT SHOULD HAVE THE WHEELED SCOOTER DUE TO NON COMPLIANCE WITH NWB
--- NOTE | 2017-01-14 16:15 | NUR ---
MS RN NOTES PATIENT IS REFUSING TO LEAVE UNTIL HE IS GIVEN AN RX FOR PAIN. CALLED AND TALKED TO DR MONZON HE IS AWARE AND WILL NOT BE BY UNTIL HE IS DONE WITH SURGERY AND A TRIPLICATE NEEDS TO BE FOUND FOR RX TO BE WRITTEN. DR MONZON WILL BE BY AROUND 730 AND PATIENT STATING HE WILL WAIT UNTIL THE MD COMES TONIGHT TO GIVE HIM RX
[2017-01-14] MEDS ORDERED: ACIDOPHILUS/BULGARICUS 1 EACH TAB.CHEW PO SCH (17:00)
--- NOTE | 2017-01-14 17:29 | NUR ---
MS DIRECTOR IMAGING PT STABLE DC EXPLAINED AND PATIENT EDUCATED AND STATED UNDERSTANDING. PT EXPLAINED THAT DR MONZON WILL BE BY BART AROUND 730 PM IF HE WANTS TO WAIT FOR A NARCOTIC RX OR HE CAN COME BY AGAIN TOMORROW 9AM. PATIENT STATES THIS IS NOT NECESSARY AND HE ALREADY TALKED TO HIS PCP AND HE WILL GIVE HIM AN RX TOMORROW FOR NARCOTICS. PATIENT LEFT WITH CAM BOOT, ALL BELONGINGS. WOUND CARE COMPLETED ORDERED AND PATIENT AWARE HOW TO COMPLETE WOUND CARE. HE IS AWARE WHEN TO FOLLOW UP WITH DR MONZON. PATIENT STATES UNDERSTANDING AND STATES NOTHING FURTHER NEEDED. PT ASSISTED IN WHEELCHAIR BY SHARATH AHUJA TO PRIVATE CAR WITH . PT LEFT IN STABLE CONDITION
[2017-01-14] MEDS ORDERED: CEPHALEXIN MONOHYDRATE 500 MG CAPSULE PO SCH (21:00)
[2017-01-14] MEDS ORDERED: DOXYCYCLINE HYCLATE (100 MG) 100 MG TABLET PO SCH (21:00)
[2017-01-15] MEDS ORDERED: MUPIROCIN OINT 2% 22 GM TUBE TP SCH (09:00)
== END 2017-01-14 17:30 | disposition home or self-care (01) | DRG 317 ==
LOC: ER 14:30 → MEDSG2 16:12
PROVIDERS: ADMIT Internal Medicine; ATTEND Internal Medicine
PROC: 0MB Bursae and Ligaments, Excision (ICD-10-PCS; principal; 2017-01-09 12:00)
PROC: 05H633Z Insertion of Infusion Device into Left Subclavian Vein, Percutaneous Approach (ICD-10-PCS; 2017-01-12)
DX: E11.69 Type 2 diabetes mellitus with other specified complication (principal); M86.8X6 Other osteomyelitis, lower leg; N17.0 Acute kidney failure with tubular necrosis; E11.621 Type 2 diabetes mellitus with foot ulcer; E46 Unspecified protein-calorie malnutrition; L03.116 Cellulitis of left lower limb; E11.22 Type 2 diabetes mellitus with diabetic chronic kidney disease; Z68.41 Body mass index [BMI] 40.0-44.9, adult; L97.509 Non-pressure chronic ulcer of other part of unspecified foot with unspecified severity; E11.40 Type 2 diabetes mellitus with diabetic neuropathy, unspecified; E78.5 Hyperlipidemia, unspecified; K21.9 Gastro-esophageal reflux disease without esophagitis; F41.9 Anxiety disorder, unspecified; G89.4 Chronic pain syndrome; E66.9 Obesity, unspecified; E11.42 Type 2 diabetes mellitus with diabetic polyneuropathy; E11.622 Type 2 diabetes mellitus with other skin ulcer; L97.329 Non-pressure chronic ulcer of left ankle with unspecified severity; N18.9 Chronic kidney disease, unspecified; Z87.891 Personal history of nicotine dependence; I12.9 Hypertensive chronic kidney disease with stage 1 through stage 4 chronic kidney disease, or unspecified chronic kidney disease
CPT/HCPCS: 36415; 71010-TC; 73610-TC; 80048-TC; 80061-TC; 80202-TC; 82962-TC; 83735-TC; 84100-TC; 85025-TC; 85730-TC; 87040-TC; 87070-TC; 87075-TC; 87081-TC; 97001-TC; 97116-TC; 97530-TC; A4606; A6402; A6403; J0696; J1170; J1200; J1650; J1815; J1885; J2001; J2270; J2405; J2543; J2704; J3370; J3490; J7050; J7060; Z7610